=== PATIENT | male | born 1960 | race Caucasian/White ===

== ENCOUNTER 2016-07-24 09:45 | Day surgery (SDC) | payer BC ==
[~2016-07-24] VITALS: Ht 175.3 cm; Wt 80.3 kg
[2016-07-24 10:08] VITALS: BP 138/99; PULSE 98; TEMP 97.1
[2016-07-24] MEDS ORDERED: NORVASC 5MG5 MG/TAB PO (10:10)
[2016-07-24] MEDS ORDERED: DEXILANT60 MG PO (10:11)
[2016-07-24 11:36] VITALS: BP 136/92; PULSE 95; TEMP 97.8
[2016-07-24 11:50] VITALS: BP 112/98; PULSE 98
[2016-07-24 12:05] VITALS: BP 123/109; PULSE 102
[2016-07-24 13:10] VITALS: BP 138/94; PULSE 85
== END 2016-07-24 12:15 | disposition home or self-care (01) ==
LOC: SDCO 09:45
DX: Z12.11 Encounter for screening for malignant neoplasm of colon (principal); K21.0 Gastro-esophageal reflux disease with esophagitis; K44.9 Diaphragmatic hernia without obstruction or gangrene; K64.1 Second degree hemorrhoids; I10 Essential (primary) hypertension
CPT/HCPCS: J2250; J3010; J7030

== ENCOUNTER → 2021-01-15 | Outpatient (CLI) | payer BC ==
[~2021-01-15] MED LIST: DEXILANT60 MG PO; NORVASC 5MG5 MG/TAB PO
== END ==
LOC: MHCPAIN 08:28
DX: M47.812 Spondylosis without myelopathy or radiculopathy, cervical region (principal); M54.12 Radiculopathy, cervical region; M96.1 Postlaminectomy syndrome, not elsewhere classified; G89.29 Other chronic pain
CPT/HCPCS: G0463

== ENCOUNTER → 2021-01-23 | Outpatient (CLI) | payer BC | LOC: MHCPAIN 12:48 | DX: M47.812 Spondylosis without myelopathy or radiculopathy, cervical region (principal); M54.12 Radiculopathy, cervical region | CPT/HCPCS: J1100; Q9967 ==

== ENCOUNTER → 2021-02-05 | Outpatient (CLI) | payer BC | LOC: MHCPAIN 02-04 10:51 | DX: M47.812 Spondylosis without myelopathy or radiculopathy, cervical region (principal); M54.12 Radiculopathy, cervical region; M96.1 Postlaminectomy syndrome, not elsewhere classified; G89.29 Other chronic pain | CPT/HCPCS: G0463 ==

== ENCOUNTER → 2021-02-13 | Outpatient (CLI) | payer BC | LOC: MHCPAIN 10:49 | DX: M47.812 Spondylosis without myelopathy or radiculopathy, cervical region (principal); M54.12 Radiculopathy, cervical region | CPT/HCPCS: J1100; Q9967 ==

== ENCOUNTER → 2021-02-25 | Outpatient (CLI) | payer BC | LOC: MHCPAIN 15:08 | DX: M79.2 Neuralgia and neuritis, unspecified (principal); M54.12 Radiculopathy, cervical region; M47.812 Spondylosis without myelopathy or radiculopathy, cervical region | CPT/HCPCS: G0463 ==

== ENCOUNTER → 2023-08-02 | Outpatient (CLI) | payer BC ==
--- NOTE | 2023-07-28 13:29 | NUR ---
[facility] WITH CALL BACK NUMBER AND INSTRUCTIONS TO CALL US BACK.
[~2023-08-02] VITALS: Ht 175.3 cm; Wt 84.9 kg
[~2023-08-02] MED LIST changes: +GRALISE300 MG PO; +MICARDIS40 MG PO; +NEXIUM 20MG20 MG PO; +Triamcinolone 40 MG/ML 1 ML VIAL IJ SCH
[2023-08-02 12:39] VITALS: BP 150/90; PULSE 106; TEMP 97.9
[2023-08-02 13:10] VITALS: BP 162/70; PULSE 104
== END ==
LOC: COL.RAD 12:17
DX: M48.061 Spinal stenosis, lumbar region without neurogenic claudication (principal)
CPT/HCPCS: J0665; J3301